=== PATIENT | female | born 1990 | race African-American/Black ===

== ENCOUNTER 2018-04-18 00:24 | Observation (INO) ==
[2018-04-18] MEDS ORDERED: Bisacodyl 10 MG Supp RECTAL PRN (05:56)
[2018-04-18] MEDS ORDERED: Acetaminophen 325 MG Tablet PO PRN (05:56)
[2018-04-18] MEDS ORDERED: Sodium Chlor 0.9% Inj 250 ML IV.SIG SCH (06:00)
--- NOTE | 2018-04-18 10:02 | P.HPIM ---
History of Present Illness Primary Care Physician: UNKNOWN Chief Complaint: fatigue History of Present Illness: patient is a 28 y/o female, st her sixth week of , who presented to ER with shortness of breath, fatigue and dizziness. she says that she's had these symptoms for a while and she had a blood work done yesterday and had a call from her physician and was notified about her anemia. she says that she's had mild lower abdomen cramping and on and off spotting. Review of Systems Review of Systems: all other systems reviewed are negative [facility] Medical History Medical History (Acute) Anemia (Acute) Encephalitis (Acute) Meningitis (Acute) Surgical History Surgical History H/O dilation and curettage (Acute) Social History Social History Substance History: No History of Abuse Second Hand Smoke Exposure: No Smoking Status: Never smoker Tobacco Type: Cigarettes How Often Do You Have a Drink Containing Alcohol: Never Medications and Allergies Allergies Allergy/AdvReac Type Severity Reaction Status Date / Time codeine Allergy Itching Verified 04/18/18 00:39 Home Medications Medication Instructions Recorded Confirmed Type No Known Home Medications 04/18/18 04/18/18 History Active Medications: Active Medications Acetaminophen (Tylenol) 650 mg PO Q4H PRN PRN Reason: Temp > 100.4 Al Hydroxide/Mg Hydroxide (Milk Of Magnesia Liq) 30 ml PO Q12H PRN PRN Reason: Mild Constipation Bisacodyl (Dulcolax Supp) 10 mg RECTAL DAILY PRN PRN Reason: SEVERE CONSITIPATION Sodium Chloride (Ns Inj) 250 mls @ 15 mls/hr IV.SIG ONCE [facility] Stop: 04/18/18 22:39 Sodium Chloride (Ns Inj) 1,000 mls @ 125 mls/hr IV.CONT .Q8H [facility] Lactulose (Lactulose Liq) 30 ml PO DAILY PRN PRN Reason: SEVERE CONSITIPATION Nitrofurantoin Macrocrystals (Macrobid) 100 mg PO BIDPC [facility] Ondansetron HCl (Zofran Inj) 4 mg IV.PUSH Q6H PRN PRN Reason: NAUSEA OR VOMITING Sennosides (Senokot) 17.2 mg PO Q12H PRN PRN Reason: Moderate Constipation Sodium Chloride (Ns Flush) 2 ml IV.FLUSH PRN PRN PRN Reason: FLUSH AFTER USING IV ACCESS Sodium Chloride (Ns Flush) 2 ml IV.FLUSH BID [facility] Physical Exam Vital signs: Vital Signs 04/18/18 08:00 Temperature 99.5 F Pulse Rate 76 Respiratory Rate 16 Blood Pressure 78/47 L Pulse Oximetry 100 Constitutional no acute distress Routine HEENT Exam Eye: Present PERRL Routine Neck Exam Present supple Routine Respiratory Exam Present CTA bilaterally Routine Cardiovascular Exam Present RRR Routine Abdominal Exam Present soft Routine Extremities Exam Comments: no pedal edema. Routine Neurological Exam Present alert and oriented X3 Caprini VTE Risk Assessment Caprini VTE Risk Assessment: No/Low Risk (score <= 1) Caprini Risk Assessment Model: Point Value = 1 Point Value = 2 Point Value = 3 Point Value = 5 Age 41-60 Minor surgery BMI > 25 kg/m2 Swollen legs Varicose veins or History of unexplained or recurrent spontaneous Oral contraceptives or hormone replacement Sepsis (< 1 month) Serious lung disease, including pneumonia (< 1 month) Abnormal pulmonary function Acute myocardial infarction Congestive heart failure (< 1 month) History of inflammatory bowel disease Medical patient at bed rest Age 61-74 Arthroscopic surgery Major open surgery (> 45 min) Laparoscopic surgery (> 45 min) Malignancy Confined to bed (> 72 hours) Immobilizing plaster cast Central venous access Age >= 75 History of VTE Family history of VTE Factor V Leiden Prothrombin [id number] Lupus anticoagulant Anticardiolipin antibodies Elevated serum homocysteine Heparin-induced thrombocytopenia Other congenital or acquired thrombophilia Stroke (< 1 month) Elective arthroplasty Hip, pelvis, or leg fracture Acute spinal cord injury (< 1 month) Prophylaxis Regimen: Total Risk Factor Score Risk Level Prophylaxis Regimen 0-1 Low Early ambulation 2 Moderate Order ONE of the following: *Sequential Compression Device (SCD) *Heparin 5000 units SQ BID 3-4 Higher Order ONE of the following medications: *Heparin 5000 units SQ TID *Enoxaparin/Lovenox 40 mg SQ daily (WT < 150 kg, CrCl > 30 mL/min) *Enoxaparin/Lovenox 30 mg SQ daily (WT < 150 kg, CrCl > 10-29 mL/min) *Enoxaparin/Lovenox 30 mg SQ BID (WT < 150 kg, CrCl > 30 mL/min) AND/OR *Sequential Compression Device (SCD) 5 or more Highest Order ONE of the following medications: *Heparin 5000 units SQ TID (Preferred with Epidurals) *Enoxaparin/Lovenox 40 mg SQ daily (WT < 150 kg, CrCl > 30 mL/min) *Enoxaparin/Lovenox 30 mg SQ daily (WT < 150 kg, CrCl > 10-29 mL/min) *Enoxaparin/Lovenox 30 mg SQ BID (WT < 150 kg, CrCl > 30 mL/min) AND *Sequential Compression Device (SCD) Assessment and Plan Plan A/P - anemia/ hypochromic microcytic/ sixth week of will transfuse with PRBC and monitor the H/H- check iron panel- OB was consulted. -hypotension will start on IV fluid- BP expected to improve with PRBC transfusion. -possible UTI started on Macrobid- will follow the UC. 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
[2018-04-18] MEDS: Nitrofurantoin Monohydrate-Macrocrystal 100 MG Capsule PO SCH ×2 (11:05→18:26)
[2018-04-18] MEDS: Sod Chloride 0.9% Inj 1,000 ML IV.CONT SCH ×2 (11:05→18:27)
[2018-04-18 11:10] LABS: Hematocrit 25.5 % (35.0-46.0); Hemoglobin 7.6 gm/dL (11.6-15.3)
[2018-04-18 11:27] LABS: % Iron Saturation 4.3 % (20-50)
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
[2018-04-18] MEDS ORDERED: Ascorbic Acid 500 MG Tablet PO SCH ×2 (15:30→21:00)
[2018-04-18] MEDS: Ferrous Sulfate 325 MG Tablet PO SCH (18:26)
[2018-04-18] MEDS: Ascorbic Acid 500 MG Tablet PO SCH (18:26)
[2018-04-18] MEDS ORDERED: Ferrous Sulfate 325 MG Tablet PO SCH (21:00)
[2018-04-18 21:32] LABS: Hematocrit 28.1 % (35.0-46.0); Hemoglobin 8.7 gm/dL (11.6-15.3)
[2018-04-19] MEDS: Sod Chloride 0.9% Inj 1,000 ML IV.CONT SCH ×2 (01:54→06:25)
[2018-04-19 07:20] LABS: Baso % (Auto) 0.3 % (0.0-2.0); Eos % (Auto) 0.5 % (0.0-4.0); Hematocrit 28.3 % (35.0-46.0); Hemoglobin 8.6 gm/dL (11.6-15.3); Lymph # (Auto) 1.9 th/mm3 (1.0-4.8); Lymph % (Auto) 28.8 % (9.0-44.0); Mean Corpuscular Hemoglobin 19.9 pg (27.0-34.0); Mean Corpuscular Volume 65.6 fL (80.0-100.0); Mean Platelet Volume 9.6 fL (7.0-11.0); Mono # (Auto) 0.4 th/mm3 (0.0-0.9); Mono % (Auto) 6.6 % (0.0-8.0); Neut # (Auto) 4.1 th/mm3 (1.8-7.7); Neut % (Auto) 63.8 % (16.0-70.0); Platelet Count 293 th/mm3 (150-450); Red Blood Count 4.32 mil/mm3 (4.00-5.30); Red Cell Distribution Width 20.4 % (11.6-17.2); White Blood Count 6.5 th/mm3 (4.0-11.0)
[2018-04-19 07:34] LABS: Mean Corpuscular HGB Conc 30.4 % (32.0-36.0)
[2018-04-19 07:37] LABS: Anion Gap 8 meq/L (5-15); Blood Urea Nitrogen 7 mg/dL (7-18); Calcium 7.6 mg/dL (8.5-10.1); Carbon Dioxide 23.9 meq/L (21.0-32.0); Chloride 108 meq/L (98-107); Glomerular Filtration Rate Greater Than 89 mL/min (>89); Glucose,Random 81 mg/dL (74-106); Potassium 3.6 meq/L (3.5-5.1); Sodium 140 meq/L (136-145)
[2018-04-19 07:51] VITALS: BP 92/54; PULSE 68; RESP 15; TEMP 97.8; O2SAT 98
--- NOTE | 2018-04-19 08:26 | P.PNIM ---
Subjective Interval history: f/u; anemia in no acute distress. feels better today and wants to go home. no new complaints. BP has improved. Physical Exam Vital signs: Vital Signs 04/18/18 11:39 04/18/18 12:39 04/18/18 12:54 Temperature 97.8 F 97.8 F 98.9 F Pulse Rate 76 67 74 Respiratory Rate 16 16 14 Blood Pressure 97/52 L 98/62 L 93/52 L Pulse Oximetry 98 100 04/18/18 15:22 04/18/18 16:27 04/18/18 20:00 Temperature 98.4 F 99.1 F 98.3 F Pulse Rate 80 71 74 Respiratory Rate 16 14 16 Blood Pressure 87/54 L 89/54 L 94/57 L Pulse Oximetry 100 100 98 04/19/18 00:46 04/19/18 04:00 04/19/18 07:51 Temperature 98.5 F 97.8 F Pulse Rate 79 75 68 Respiratory Rate 16 16 15 Blood Pressure 94/48 L 90/49 L 92/54 L Pulse Oximetry 97 100 98 Intake & Output 04/18/18 04/19/18 04/19/18 18:59 06:59 18:59 Intake Total 400 / 400 540 / 540 Balance 400 / 400 540 / 540 Weight 56.699 kg Intake: IV 300 / 300 NS Inj 1,000 ML @ 125 mls/hr IV 300 / 300 .CONT .Q8H [facility] Rx#:[id number] Oral 240 / 240 Intake (Blood Product) Amt 400 / 400 Rbc As-3 Leukoreduced Unit 400 / 400 [id number] Other: # Voids 2 Weight On Admission 56.699 kg Constitutional no acute distress Routine Respiratory Exam Present CTA bilaterally Routine Cardiovascular Exam Present RRR Routine Abdominal Exam Present soft Routine Extremities Exam Comments: no pedal edema. Routine Neurological Exam Present alert and oriented X3 Results Labs CBC & Chem 7: 04/19/18 05:45 04/19/18 05:40 Assessment and Plan (1) Symptomatic anemia: Code(s): D64.9 - Anemia, unspecified Status: Acute (2) : Code(s): Z34.90 - Encounter for supervision of normal , unspecified, unspecified trimester Status: Acute (3) Bacteriuria during : Code(s): O99.89 - Other specified diseases and conditions complicating , childbirth and the puerperium; R82.71 - Bacteriuria Status: Acute (4) Poor patient attendance of care: Code(s): O09.30 - Supervision of with insufficient care, unspecified trimester Status: Acute (5) 6 weeks gestation of : Code(s): Z3A.01 - Less than 8 weeks gestation of Status: Acute Plan A/P - anemia/ hypochromic microcytic/ sixth week of / iron deficiency anemia H/H improved after blood transfusion- will continue with iron supplement OB consult appreciated; f/u as outpatient. -hypotension- improved. -possible UTI continue with Macrobid. Discussed Condition With: the patient. Discharge Planning: dc home today. see med list. 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 Progress Note: Quality VTE Deep Vein Thrombosis/Pulmonary Embolism Present on Admission: No _ (1) Qualifiers: Weeks of gestation:
[2018-04-19] MEDS: Ascorbic Acid 500 MG Tablet PO SCH (09:26)
[2018-04-19] MEDS: Ferrous Sulfate 325 MG Tablet PO SCH (09:27)
[2018-04-19] MEDS: Nitrofurantoin Monohydrate-Macrocrystal 100 MG Capsule PO SCH (09:27)
== END 2018-04-19 10:17 | disposition home or self-care (01) ==
LOC: NEDDLT 08:25 → NEPGCP 08:25
PROVIDERS: ADMIT Internal Medicine; ATTEND Internal Medicine
DX: D50.9 Iron deficiency anemia, unspecified; Z3A.01 Less than 8 weeks gestation of pregnancy; O26.851 Spotting complicating pregnancy, first trimester; O99.011 Anemia complicating pregnancy, first trimester; O26.51 Maternal hypotension syndrome, first trimester
CPT/HCPCS: 36430; 76801; 76805; 76817; 76830; 80048; 80053; 81001; 82728; 83540; 83550; 84702; 85014; 85018; 85025; 86850; 86900; 86901; 86923; 87077; 87086; 87186; 96360; 96361; 99285; G0378; J7030; P9016